=== PATIENT | male | born 2005 | race African-American/Black ===

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

== ENCOUNTER 2024-05-26 06:58 | Emergency (ER) | payer BC ==
[~2024-05-26] VITALS: Ht 177.8 cm; Wt 120.2 kg
[2024-05-26 07:54] LABS: HEMATOCRIT 47.5 % (36.0-47.0); HEMOGLOBIN 16.5 g/dL (12.5-16.1); MEAN CELL VOLUME 85 fl (78-95); MEAN CORPUSCULAR HEMOGLOBIN 30 pg (26-32); MEAN CORPUSCULAR HGB CONC 35 g/dL (33-37); MEAN PLATELET VOLUME 9.6 fl (7.4-10.4); PLATELET COUNT 253 K/mm3 (130-400); RED BLOOD COUNT 5.58 M/mm3 (4.20-5.60); RED CELL DISTRIBUTION WIDTH 12.6 % (11.5-14.5); WHITE BLOOD COUNT 5.7 K/mm3 (4.8-10.8)
[2024-05-26 07:57] LABS: ALBUMIN 4.6 g/dL (3.5-5.0)
[2024-05-26 07:58] LABS: CALCIUM 9.4 mg/dL (8.3-10.5)
[2024-05-26 08:01] LABS: TOTAL BILIRUBIN 0.6 mg/dL (0.2-1.2)
[2024-05-26 08:06] LABS: MAGNESIUM 2.07 mg/dL (1.70-2.20)
[2024-05-26] MEDS ORDERED: diphenhydrAMINE 50 MG/ML 1 ML VIAL IV ONE (08:30)
[2024-05-26] MEDS ORDERED: Ketorolac 30 MG/ML VIAL IV ONE (08:30)
[2024-05-26 08:44] LABS: LYMPHOCYTE 44 % (20-51); MONOCYTE 14 % (1-10); NEUTROPHILS 40 % (42-75)
[2024-05-26 09:06] VITALS: BP 138/92
== END 2024-05-26 09:07 | disposition home or self-care (01) ==
LOC: ED 06:58
PROVIDERS: Family Medicine
DX: G43.909 Migraine, unspecified, not intractable, without status migrainosus (principal); E86.0 Dehydration; D58.2 Other hemoglobinopathies
CPT/HCPCS: J0780; J1200; J1885

== ENCOUNTER 2024-12-14 22:10 | Emergency (ER) | payer OTHER ==
[~2024-12-14] VITALS: Ht 175.3 cm; Wt 121.8 kg
[2024-12-14 22:18] VITALS: BP 133/92
[2024-12-14] MEDS ORDERED: Lidocaine 2% Viscous 15 ML UNIT DOSE CUP MM ONE (22:45)
[2024-12-14] MEDS ORDERED: Mag/Al Hydrox/Simeth Susp 30 ML CUP PO ONE (22:45)
[2024-12-14] MEDS ORDERED: Benzocaine Topical 200 (One Second) Sprays/57 GM Bottle MM (23:15)
== END 2024-12-14 23:29 | disposition home or self-care (01) ==
LOC: ED 22:10
DX: R09.A2 Foreign body sensation, throat (principal); Z90.49 Acquired absence of other specified parts of digestive tract